=== PATIENT | female | born 1985 | race Caucasian/White ===

== ENCOUNTER 2023-08-09 14:11 | Emergency (ER) | payer OTHER ==
[2023-08-09 14:32] VITALS: BP 132/83; O2SAT 99
--- NOTE | 2023-08-09 14:50 | ED Physician Documentation ---
History of Present Illness - Stated complaint Stated Complaint: C+ EAR PX - Chief complaint Chief Complaint: Heent - History obtained from History obtained from: Patient - Additonal information Additional information: Sick x 3 days, body aches, runny nose and now severe R ear pain x 1 day. PD PAST MEDICAL HISTORY - Past Medical History Past Medical History: Yes Cardiovascular: Hypertension Respiratory: None Neuro: None Endocrine/Autoimmune: None GI: None [place]: [place] : None HEENT: None Psych: ADD/ADHD, Other Musculoskeletal: None Derm: None Other Past Medical History: sleep disorder - Past Surgical History Past Surgical History: Yes /[place]: section, Hysterectomy - Present Medications Home Medications: Ambulatory Orders Medication Instructions Recorded Confirmed Amox/Clav 875/125 [Augmentin] 1 each PO Q12H #20 tablet 08/09/23 Fluconazole 150 mg PO ONCE PRN #1 tablet 08/09/23 - Allergies Allergies/Adverse Reactions: Allergies Allergy/AdvReac Type Severity Reaction Status Date / Time No Known Drug Allergies Allergy Verified 08/09/23 14:17 - Social History Does the pt smoke?: No Smoking Status: Never smoker Does the pt drink ETOH?: No Does the pt have substance abuse?: No - Immunizations Immunizations are current?: Yes - POLST Patient has POLST: No PD ED PE NORMAL - Vitals Vital signs reviewed: Yes - General General: Alert and oriented X 3, No acute distress - HEENT HEENT: Other (severe ROM) - Neck Neck: Supple, no meningeal sign, No bony TTP - Neuro Neuro: Alert and oriented X 3, Normal speech Results - Vitals Vitals: Vital Signs - 24 hr 08/09/23 14:17 Temperature 37.0 C Heart Rate 84 Respiratory 16 Rate Blood Pressure 132/83 H O2 Saturation 99 Oxygen O2 Source Room air Departure - Departure Disposition: Home, Self Care Clinical Impression: COVID-19 ROM (right otitis media) Qualifiers: Otitis media type: suppurative Chronicity: acute Recurrence: recurrent Spontaneous tympanic membrane rupture: without spontaneous rupture Qualified Code(s): H66.004 - Acute suppurative otitis media without spontaneous rupture of ear drum, recurrent, right ear Condition: Good Record reviewed to determine appropriate education?: Yes Instructions: ED Otitis Media Acute Adult Prescriptions: Amox/Clav 875/125 [Augmentin] 1 each PO Q12H #20 tablet Fluconazole 150 mg PO ONCE PRN #1 tablet PRN Reason: yeast infection Comments: I sent your prescription electronically to [email or web address]. Followup for recheck with your physician in 1 week. Return if worse. Forms: PCP List
== END 2023-08-09 15:37 | disposition home or self-care (01) ==
LOC: ED 14:11
DX: U07.1 COVID-19 (principal); H66.004 Acute suppurative otitis media without spontaneous rupture of ear drum, recurrent, right ear; I10 Essential (primary) hypertension
CPT/HCPCS: 99282; 99283

== ENCOUNTER 2023-12-25 13:55 | Outpatient (CLI) | payer OTHER ==
--- NOTE | 2023-12-25 11:48 | XRAY Report ---
PROCEDURE: Foot 3+V RT INDICATIONS: ANKLE PAIN, RIGHT TECHNIQUE: 3 views of the foot were acquired. COMPARISON: None. FINDINGS: Bones: No fractures or dislocations. Ankle mortise is congruent on nonweightbearing view. No suspic ious bony lesions. Soft tissues: No tibiotalar joint effusion. Achilles tendon appears normal. IMPRESSION: No acute bony abnormality. If clinical symptoms persist, consider repeat radiograph in 10-14 days dayne barbara cross-sectional imaging. Reviewed by: Mariano Bakrer MD on 12/25/2023 11:47 AM PDT Approved by: Mariano Barker MD on 12/25/2023 11:47 AM PDT Station ID: [id number]
--- NOTE | 2023-12-25 11:54 | XRAY Report ---
PROCEDURE: Ankle 3+V RT INDICATIONS: ANKLE PAIN, RIGHT TECHNIQUE: 3 views of the ankle were acquired. COMPARISON: Same day foot radiograph. FINDINGS: Bones: No fractures or dislocations. Ankle mortise is normally aligned on nonweightbearing view. N o suspicious bony lesions. Soft tissues: No tibiotalar joint effusion. Achilles tendon appears normal. IMPRESSION: No acute bony abnormality. If there remains a high clinical concern for fracture, consider cross-sect ional imaging now. If pain persists, consider repeat x-ray in 10-14 days or cross-sectional imaging. Reviewed by: Mariano Barker MD on 12/25/2023 11:52 AM PDT Approved by: Mariano Barker MD on 12/25/2023 11:52 AM PDT Station ID: [id number]
== END 2023-12-25 13:56 | disposition home or self-care (01) ==
LOC: DI.N 13:55
PROVIDERS: ATTEND Physician Assistant Medical
DX: M25.571 Pain in right ankle and joints of right foot (principal)

== ENCOUNTER 2024-05-12 20:17 | Emergency (ER) | payer OTHER ==
[2024-05-12 21:05] LABS: BASOPHILS # (AUTO) 0.1 10^3/uL (0.0-0.1); BASOPHILS % (AUTO) 0.5 %; EOSINOPHILS # (AUTO) 0.1 10^3/uL (0.0-0.7); EOSINOPHILS % (AUTO) 1.3 %; HCT - HEMATOCRIT 38.3 % (37.0-47.0); HGB - HEMOGLOBIN 12.9 g/dL (12.0-16.0); LYMPHOCYTES # (AUTO) 3.7 10^3/uL (1.5-3.5); LYMPHOCYTES % (AUTO) 39.7 %; MEAN CORPUSCULAR HEMOGLOBIN 29.5 pg (27.0-31.0); MEAN CORPUSCULAR HGB CONC 33.7 g/dL (32.0-36.0); MEAN CORPUSCULAR VOLUME 87.6 fL (81.0-99.0); MEAN PLATELET VOLUME 9.3 fL (7.9-10.8); MONOCYTES # (AUTO) 0.6 10^3/uL (0.0-1.0); NEUTROPHILS # (AUTO) 4.8 10^3/uL (1.5-6.6); NEUTROPHILS % (AUTO) 52.3 %; PLT - PLATELET COUNT 358 10^3/uL (130-450); RED BLOOD COUNT 4.37 10^6/uL (4.20-5.40); RED CELL DISTRIBUTION WIDTH 12.5 % (12.0-15.0); WHITE BLOOD COUNT 9.2 x10^3/uL (4.8-10.8)
[2024-05-12 21:25] LABS: TROPONIN I HIGH SENSITIVITY < 2.3 ng/L (2.3-14.8)
[2024-05-12 21:26] LABS: ALBUMIN 4.6 g/dL (3.2-5.5); ALKALINE PHOSPHATASE 44 IU/L (42-121); ALT ALANINE AMINOTRANSFERASE 18 IU/L (10-60); AST ASPARTATE AMINOTRANSFERASE 14 IU/L (10-42); BILIRUBIN,TOTAL 0.3 mg/dL (0.2-1.0); BUN - BLOOD UREA NITROGEN 9 mg/dL (6-20); CALCIUM 9.6 mg/dL (8.5-10.3); CARBON DIOXIDE - CO2 27 mmol/L (21-32); CHLORIDE 105 mmol/L (101-111); CREATININE 0.8 mg/dL (0.6-1.3); GFR - MDRD 81 (>89); GLUCOSE 94 mg/dL (74-104); LIPASE 29 U/L (11-82); POTASSIUM 3.8 mmol/L (3.5-4.5); SODIUM 138 mmol/L (135-145); TOTAL PROTEIN 6.9 g/dL (6.4-8.9)
[2024-05-12 21:37] VITALS: BP 135/74; O2SAT 99
--- NOTE | 2024-05-12 22:12 | ED Physician Documentation ---
History of Present Illness - Stated complaint Stated Complaint: HEART PALP - Chief complaint Chief Complaint: Cardiac - History obtained from History obtained from: Patient - Additonal information Additional information: HPI from patient. Patient c/o episodic palpitations throughout the day today. She describes episodes as a sensation of a skipped beat immediately followed by a couple of seconds of rapid palpitations, then resolves. No inciting event nor any apparent exacerbating or ameliorating factors. Denies dyspnea, leg swelling, chest pain. Similar symptoms 20 years ago at which time she had a Holter monitor without diagnostic results. 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: section, Hysterectomy - Present Medications Home Medications: Ambulatory Orders Medication Instructions Recorded Confirmed Dexmethylphenidate HCl [Focalin Xr] 15 mg PO DAILY 05/12/24 cloNIDine HCL [Clonidine HCl] 0.2 mg PO DAILY 05/12/24 - Allergies Allergies/Adverse Reactions: Allergies Allergy/AdvReac Type Severity Reaction Status Date / Time No Known Drug Allergies Allergy Verified 05/12/24 20:33 - Social History Does the pt smoke?: No Smoking Status: Never smoker Does the pt drink ETOH?: No Does the pt have substance abuse?: No - Immunizations Immunizations are current?: Yes - POLST Patient has POLST: No PD ED PE NORMAL - Vitals Vital signs reviewed: Yes - General General: Alert and oriented X 3, No acute distress, Well developed/nourished - Cardiac Cardiac: RRR, No murmur, No gallop, No rub - Respiratory Respiratory: No respiratory distress, Clear bilaterally Results - Vitals Vitals: Oxygen O2 Source Room air - EKG (time done) No standard instances EKG releavant findings:: EKG personally interpreted by author of this note. Relevant findings are: Rate: Rate (enter#) (80) Rhythm: NSR [place]: Normal Intervals: Normal [place], QRS normal QRS: Normal Ischemia: Normal ST segments - Labs Labs: Laboratory Tests 05/12/24 05/12/24 21:01 21:01 WBC 9.2 RBC 4.37 Hgb 12.9 Hct 38.3 MCV 87.6 MCH 29.5 MCHC 33.7 RDW 12.5 Plt Count 358 MPV 9.3 Neut # (Auto) 4.8 Lymph # (Auto) 3.7 H [place] # (Auto) 0.6 Eos # (Auto) 0.1 Baso # (Auto) 0.1 Absolute Nucleated RBC 0.00 Nucleated RBC % 0.0 Sodium 138 Potassium 3.8 Chloride 105 Carbon Dioxide 27 Anion Gap 6.0 BUN 9 Creatinine 0.8 Estimated GFR (MDRD) 81 L Glucose 94 Calcium 9.6 Total Bilirubin 0.3 AST 14 ALT 18 Alkaline Phosphatase 44 Troponin I High Sens < 2.3 L Total Protein 6.9 Albumin 4.6 Globulin 2.3 Albumin/Globulin Ratio 2.0 Lipase 29 - Rads (name of study) chest xray Relevant Findings:: Prelim report reviewed, Other PD Medical Decision Making - ED course Complexity details: reviewed results, re-evaluated patient, considered differential, d/w patient ED course: Normal CBC (insignificant exception of lymphocytes low), Normal ER abdominal panel (insignificant exception of GFR 81). Normal hs-cTn. Normal EKG and CXR. Asymptomatic throughout ED stay and no ectopy on continuous cardiac monitoring. Etiology of patient symptoms is not apparent at this time. We discussed results, return precautions, and she is advised to seek follow up with PCP; will likely benefit from outpatient cardiac monitoring such as Zio patch. Departure - Departure Disposition: 01 Home, Self Care Clinical Impression: Palpitations Condition: Good Instructions: ED Palpitations Comments: There were no concerning nor diagnostic findings on tonight's tests, including the chest x-ray, blood tests, and the EKG. The cause of your palpitations is not apparent at this time. Follow-up with your primary care provider as scheduled; further testing, at their discretion, might be beneficial (such as a Zio patch). Discharge Date/Time: 05/12/24 23:14
--- NOTE | 2024-05-12 22:39 | XRAY Report ---
PROCEDURE: Chest 1V INDICATIONS: Chest pain TECHNIQUE: One view of the chest was acquired. COMPARISON: None. FINDINGS: Surgical changes and devices: None. Lungs and pleura: No dense consolidation or pleural effusion Mediastinum: Normal heart size Bones and chest wall: Unremarkable IMPRESSION: No acute radiographic abnormality on this limited single view study. Reviewed by: Brendan Ramirez MD on 05/12/2024 10:38 PM PDT Approved by: Brendan Ramirez MD on 05/12/2024 10:38 PM PDT Station ID: [id number]
== END 2024-05-12 23:14 | disposition home or self-care (01) ==
LOC: ED 20:17
DX: R00.2 Palpitations (principal)
CPT/HCPCS: 36415; 80053; 83690; 84484; 85025; 93005; 99283; 99284